=== PATIENT | female | born 1995 | race Caucasian/White ===

== ENCOUNTER 2016-10-02 00:43 | Emergency (ER) | payer BC, SELFPAY ==
--- NOTE | ~2016-10-02 | ER ---
[facility] 21 Y [address] ROOM: [place] [address] LOCATION: [facility] ADMIT DATE: 10/02/2016 ER/Outpatient Report DISCHARGE DATE: FAMILY PHYSICIAN: Gay Butler MD ATTENDING PHYSICIAN: Judy Curtis Time of Arrival: 0043 hours. Time of Evaluation: 0048 hours. CHIEF COMPLAINT: Vaginal bleeding. HISTORY OF PRESENT ILLNESS: The patient is a 21-year-old female who presents to the emergency department today with chief complaint of vaginal bleeding. She reports this started 09/19/2016. She has gone through 96 tampons for the past 4 days. She denies any constipation. No fevers. Does have some chills. No urinary frequency, urgency, or painful urination. Does have some nausea. No vomiting. She has had some diarrhea a couple days ago. Denies any abdominal pain at this time. PAST MEDICAL HISTORY: Autoimmune Latha's. PAST SURGICAL HISTORY: Left foot. SOCIAL HISTORY: The patient denies any tobacco, alcohol, or illicit drug use. ALLERGIES: NO KNOWN DRUG ALLERGIES. MEDICATIONS: Please see list. PRIMARY CARE DOCTORS: Gay Butler MD. REVIEW OF SYSTEMS: All systems are reviewed by myself and negative with the exception of those discussed in the HPI and past medical history. PHYSICAL EXAMINATION: VITAL SIGNS: Weight 68.9 kg, blood pressure 146/82, pulse 87, respiratory rate 18, temperature 97.4, oxygen saturation 100% on room air. PATIENT'S NAME: CHIP [facility] AGE: 21 Y [address] ROOM: [place] [address] LOCATION: [facility] ADMIT DATE: 10/02/2016 ER/Outpatient Report DISCHARGE DATE: FAMILY PHYSICIAN: Gay Butler MD ATTENDING PHYSICIAN: Judy Curtis GENERAL: The patient is a 21-year-old female, who appears stated age, in no acute distress at this time. HEENT: Head: Normocephalic, atraumatic. Pupils are equal, round, and reactive to light. Conjunctivae are normal. NECK: Supple. There is no nuchal rigidity. CARDIOVASCULAR: Regular rate and rhythm. No murmurs, rubs, or gallops. LUNGS: Clear to auscultation bilaterally. No wheezes, rales, or rhonchi. ABDOMEN: Soft, nontender, and nondistended. No rebound, rigidity, or guarding. Positive bowel sounds. MUSCULOSKELETAL: The patient moves all 4 extremities. SKIN: Warm and dry. No rashes or lesions noted. PELVIC: The patient's pelvic exam is performed. There is minimal amount of bleeding noted and there were no obvious abnormalities other than some irritation of the cervix noted. There are no masses. LABORATORY DATA AND X-RAYS: CBC is unremarkable. CMP is unremarkable except for potassium of 3.0. LFTs normal. Urinalysis normal. Coags are normal. IMPRESSION: 1. Abnormal vaginal bleeding. 2. Hypokalemia. 3. Initial visit. EMERGENCY DEPARTMENT COURSE: The patient was brought back to the examination room. Seen and evaluated by myself. The patient is given 30 mg of Toradol IM. She is also given 60 mg of potassium orally. I have discussed results with history and physical as well as laboratory analysis with the patient and her family who are at the bedside. Recommended close followup with Gay Butler in 3-5 days as well as contemporary [employer] in 3-5 days. I recommend multivitamin. I have discussed return to care instructions including worsening symptoms, worsening vaginal bleeding, lightheadedness, dizziness, syncope or any other concerns to return to the emergency department as soon as possible. The patient is agreeable and family is agreeable. Their questions are answered. They are without further questions. DISPOSITION: The patient discharged home in good condition. JUDY CURTIS DO PATIENT'S NAME: MARCY SAUNDERS [facility] AGE: 21 Y [address] ROOM: [place] [address] LOCATION: ED ADMIT DATE: 10/02/2016 ER/Outpatient Report DISCHARGE DATE: FAMILY PHYSICIAN: Gay Butler MD ATTENDING PHYSICIAN: Judy Curtis/jh /[id number] d: 10/02/16227 t: 10/02/16 1846, OUTPATIENT REPORT
[2016-10-02 01:13] LABS: BASOPHIL % 0.4 %; EOSINOPHIL # 0.2 K/uL (0.0-0.5); EOSINOPHIL % 2.2 %; HEMATOCRIT 38.7 % (33.0-46.0); HEMOGLOBIN 12.8 g/dL (11.0-15.0); IMMATURE GRANULOCYTE % 0.1 %; LYMPHOCYTE # 3.8 K/uL (0.8-4.0); LYMPHOCYTE % 37.6 %; MCH 28.3 pg (27.0-34.0); MCHC 33.1 gm/dL (32.0-36.5); MCV 85.4 fl (83.0-98.0); MONOCYTE # 0.8 K/uL (0.0-1.0); MONOCYTE % 7.5 %; MPV 10.5 fl (9.4-12.4); NEUTROPHIL # (ANC) 5.3 K/uL (1.8-7.8); NEUTROPHIL % 52.2 %; NRBC % 0 /100WBC (0-0.00); PLATELET COUNT 238 K/uL (150-450); RBC 4.53 M/uL (3.50-5.00); RDW-CV 13.8 % (11.9-14.6); WBC 10.2 K/uL (4.0-11.0)
[2016-10-02 01:21] LABS: BILIRUBIN URINE NEGATIVE (NEGATIVE); BLOOD URINE NEGATIVE /UL (NEGATIVE); GLUCOSE URINE NEGATIVE (NEGATIVE); KETONE URINE NEGATIVE (NEGATIVE); LEUKOCYTES URINE NEGATIVE /UL (NEGATIVE); NITRITE URINE NEGATIVE (NEGATIVE); PROTEIN URINE NEGATIVE (NEGATIVE); SPEC GRAVITY URINE 1.005 (1.003-1.035); UROBILINOGEN URINE NORMAL (NORMAL)
[2016-10-02 01:22] LABS: COLOR URINE COLORLESS (YELLOW); TURBIDITY URINE CLEAR (CLEAR)
[2016-10-02 01:30] LABS: ALBUMIN 3.7 gm/dL (3.5-5.0); ALK PHOS 59 IU/L (33-138); ALT 21 IU/L (12-78); AST 18 IU/L (10-40); BLOOD UREA NITROGEN 14 mg/dL (6-24); CALCIUM 8.8 mg/dL (8.5-10.5); CHLORIDE 108 mMol/L (96-110); CO2 27 mMol/L (22-32); ESTIMATED GFR (MDRD EQUATION) > 60; INR - (THERAPEUTIC) 0.96 (0.92-1.07); PROTIME 10.1 SECONDS (9.8-11.4); PTT 27 SECONDS (25-32); SODIUM 140 mMol/L (135-145); TOTAL BILIRUBIN 0.4 mg/dL (0.0-1.5); TOTAL PROTEIN 7.6 g/dL (6.0-8.4)
== END 2016-10-02 01:47 | disposition disaster alternative care site (69) ==
LOC: GMED 00:43
PROVIDERS: Emergency Medicine
DX: N93.9 Abnormal uterine and vaginal bleeding, unspecified (principal); E87.6 Hypokalemia
CPT/HCPCS: J1885